=== PATIENT | male | born 1960 | race Caucasian/White ===

== ENCOUNTER → 2023-08-09 13:06 | Outpatient (REF) | payer BC, SELFPAY | LOC: RAD 13:06 | PROVIDERS: ATTENDING PHYSICIAN Family Medicine | DX: R07.81 Pleurodynia (principal) | CPT/HCPCS: 71101 ==

== ENCOUNTER 2024-06-06 22:35 | Emergency (ER) | payer BC, SELFPAY ==
[2024-06-06 22:37] VITALS: BP 157/106
--- NOTE | 2024-06-07 00:46 | ED.GENMED ---
History of Present Illness
General
Chief Complaint: Skin Surface Trauma
Source: patient and spouse
Exam Limitations: none
Time Seen by Provider: 06/07/24 00:32
Nursing documentation reviewed up to this point in time: agreed with
History of Present Illness
History of Present Illness:
This is a 64-year-old, [id number] gentleman who states he was putting a food quality tester away when the blade of the food quality tester inadvertently fell out of the receptacle and struck his dorsal left hand causing a laceration to his left
dorsal hand. He also now notices a laceration to his medial/ulnar aspect of his wrist. He noted significant venous type bleeding initially which has stopped with local pressure.
He denies weakness nor numbness.
He is up-to-date with Tdap having received this within the past 5 years.
He admits to mild local tenderness to palpation but denies significant pain.
Past History
Past History
ED Past Medical History: HTN and Other (BPH)
ED Past Surgical History: Cholecystectomy and Other (Hernia repair)
Social History
Tobacco: Non-smoker
Personal:
Living: with family
Employment: Employed
Family History
Family History: Other (Noncontributory)
Phy Exam
Physical Exam
Physical Exam:
TRAUMA EXAM:
VITAL SIGNS: Vital signs reviewed, cooperative
DISTRESS: No active disease
EYES: Pupils reactive, no orbital trauma
FACE AND SCALP: No scalp or facial trauma, external canals no blood
NECK: Supple nontender
BACK: Back nontender, pelvis stable to compression
RESPIRATORY: No distress, breath sounds normal, no tender chest wall
CARDIAC: No murmur, pulses equal and strong
SKIN: Warm and dry, normal color. Good turgor.
EXTREMITIES: There is a 3 cm linear laceration dorsal aspect of the left hand, superficial subcuticular in depth. No active bleeding. There is no tendon nor tendon sheath involvement. Mild local tenderness to palpation. No soft tissue swelling.
No palpable bony tenderness nor palpable bony abnormality. Full range of motion without difficulty nor pain.
There is a 1.5 cm linear laceration left wrist, dorsal medial aspect. This laceration is superficial to deep dermal in depth. No tendon involvement. No active bleeding. No tenderness to palpation.
NEUROLOGICAL: Alert, oriented, no motor deficits
PSYCH: Mood affect normal
Course
Vital Signs
Initial and Last Documented VS:
Initial Vital Signs
Temp Pulse Resp BP Pulse Ox
98.1 F 82 14 157/106 98
06/06/24 22:37 06/06/24 22:37 06/06/24 22:37 06/06/24 22:37 06/06/24 22:37
Last Documented Vital Signs
Temp Pulse Resp BP Pulse Ox
98.1 F 82 14 157/106 98
06/06/24 22:37 06/06/24 22:37 06/06/24 22:37 06/06/24 22:37 06/06/24 22:37
Procedures
Laceration Closure
Left Dorsal Hand:
Status of Wound: clean
Size of Wound in cm: 3
Description of Wound Edges: sharp
Preparation: cleaned with saline
Revision/Debridement: routine- no revision
Wound exploration: explored to base- no FB and no tendon involvement
Type of Closure: Dermabond-skin glue
Left Medial Dorsal Wrist:
Status of Wound: clean
Size of Wound in cm: 1.5
Description of Wound Edges: sharp
Preparation: cleaned with saline
Revision/Debridement: routine- no revision
Wound exploration: explored to base- no FB and no tendon involvement
Type of Closure: Dermabond-skin glue
MDM/Problems Addressed
Differential Diagnosis Includes:
Patient presents with traumatic linear lacerations left hand and wrist after a food quality tester blade inadvertently fell out of its container and struck his hand/wrist.
Lacerations are full-skin thickness but no tendon or deep structure involvement. No active bleeding.
No indication for radiologic study.
He is up-to-date with Tdap.
Wounds have been thoroughly irrigated and repaired with Dermabond skin glue. Steri-Strips applied over glued wound.
Wound care instructions provided.
Follow-up with PCP for recheck.
Chronic conditions affecting care: HTN
*Pulse Oximetry
Patient hypoxic: no
*Critical Care Note
Total Time (30-74mins, 75-104mins- exclusive of procedures): Not Applicable
ED Attending Note
-
Portions of this chart may have been created with voice recognition software.� Occasional wrong word or��sound alike� substitutions may have occurred due to the inherent limitations of voice recognition software.
Discharge Plan
Departure
Patient Disposition: Home (Routine Discharge)
Date of Disposition: 06/07/24
Time of Disposition: 00:46
Patient with high blood pressure during this ER visit?: No
Condition: Good
Discharge Problem:
laceration left dorsal hand, laceration left ulnar wrist
Instructions: Laceration Repair With Glue (DC), Steri-Strips over Glued Wound
Prescriptions:
No Action
tamsulosin 0.4 MG capsule
0.4 mg PO PRN PRN (Reason: urgency)
hydrocodone-acetaminophen 1 TABLET tablet
1 - 2 tab PO Q4HPRN PRN (Reason: moderate to severe pain) Qty: 15 0RF
Referrals:
UNKNOWN - PT NOT,INTERVIEWE [Family Provider] -
Activity Restrictions/Additional Instructions:
keep steri-strips clean and dry over the next 3-4 days. steri-strips and wound glue will naturally peel up and fall off on their own generally in 7 to 10 days.
Follow-up with your primary care physician next week for recheck as needed.
Interventions
Interventions:
*Risk Screen - Suicide Last Done: 06/06/24 22:37
*General Assessment Last Done: 06/06/24 22:37
*Neglect/Abuse Screening Last Done: 12/20/24 22:37
*ED COVID-19 Vaccine History Last Done: 06/07/24 00:40
ED-Skin Assessment Last Done: 06/07/24 00:40
Discharge Date and Time
Print Language: CAMEROONIAN
== END 2024-06-07 00:55 | disposition home or self-care (01) ==
LOC: EMR 22:35
PROVIDERS: EMERGENCY PHYSICIAN Emergency Medicine
DX: S61.412A Laceration without foreign body of left hand, initial encounter (principal); S61.512A Laceration without foreign body of left wrist, initial encounter; W45.8XXA Other foreign body or object entering through skin, initial encounter; I10 Essential (primary) hypertension; N40.0 Benign prostatic hyperplasia without lower urinary tract symptoms; Z90.49 Acquired absence of other specified parts of digestive tract
CPT/HCPCS: 99282; 12002

== ENCOUNTER 2025-01-02 06:19 | Day surgery (SDC) | payer BC, SELFPAY | END 2025-01-02 11:39 | disposition home or self-care (01) | LOC: GI 06:19 | PROVIDERS: ATTENDING PHYSICIAN Internal Medicine Gastroenterology | DX: Z12.11 Encounter for screening for malignant neoplasm of colon (principal); K64.8 Other hemorrhoids; K29.70 Gastritis, unspecified, without bleeding; K21.9 Gastro-esophageal reflux disease without esophagitis; K29.50 Unspecified chronic gastritis without bleeding; Z86.0100 Personal history of colon polyps, unspecified | CPT/HCPCS: 43239; G0105; 88305; 88342 ==

== ENCOUNTER → 2025-06-03 06:49 | Outpatient (REF) | payer BC, SELFPAY | LOC: HWRAD 06:49 | PROVIDERS: ATTENDING PHYSICIAN Nurse Practitioner; FAMILY PHYSICIAN Family Medicine | DX: R79.89 Other specified abnormal findings of blood chemistry (principal) | CPT/HCPCS: 76700 ==